=== PATIENT | female | born 1975 | race Caucasian/White ===

== ENCOUNTER 2021-07-05 21:51 | Emergency (ER) | payer SELFPAY ==
[2021-07-05 21:56] VITALS: BP 136/86
[2021-07-06] MEDS ORDERED: ONDANSETRON 4 MG ODT TAB PO ONE (00:11)
[2021-07-06] MEDS ORDERED: KETOROLAC 60 MG/2 ML INJ IM ONE (00:11)
--- NOTE | 2021-07-06 00:22 | Emergency Department Report ---
<KEITH GARCIA - Last Filed: 07/06/21 00:37> ED Fever HPI - General Chief Complaint: Nausea/Vomiting/Diarrhea Stated Complaint: CHILLS VOMITNG FEVER COUGH Time Seen by Provider: 07/06/21 00:03 Source: patient Exam Limitations: no limitations - History of Present Illness Initial Comments: 45-year-old female presents to the hospital, chills, cough, headache, and body aches for the last. Patient states she has been unable to do intake and has persistent nausea. She is taking TheraFlu, NyQuil, and ibuprofen intermittently. She complains of mild epigastric abdominal pain. She is vaccinated for Covid but did not receive a booster. ED Review of Systems Comment: All other systems reviewed and negative ED Past Medical Hx - Past Medical History Previous Medical History?: No - Surgical History Past Surgical History?: No - Medications Home Medications: Home Medications Medication Instructions Recorded Confirmed Last Taken Type Famotidine [Pepcid] 20 mg PO BID #20 tablet 07/06/21 Unknown Rx Ibuprofen [Motrin] 600 mg PO Q8H PRN #20 tablet 07/06/21 Unknown Rx Mag Hydrox/Aluminum Hyd/Simeth 20 ml PO QID PRN #1 bottle 07/06/21 Unknown Rx [Maalox Advanced Suspension] Ondansetron [Zofran Odt] 4 mg PO Q8HR PRN #20 tab.rapdis 07/06/21 Unknown Rx ED Physical Exam - General Limitations: No Limitations - Other Other exam information: General: Mild distress secondary to not feeling well Head: Atraumatic Eyes: normal appearance ENT: Moist mucous membranes Neck: Normal appearance, normal good rigidity noted Chest: Clear to auscultation bilaterally CV: Regular rate and rhythm Abdomen: Soft, normal bowel sounds, mild epigastric tender, nondistended, no rebound or guarding Back: Normal inspection Extremity: Normal inspection, full range of motion Neuro: Alert O x 3, no facial asymmetry, speech clear, no gross motor sensory d eficit Psych: Appropriate behavior Skin: No rash ED Medical Decision Making - Medical Decision Making 45-year-old female presents to the hospital viral symptoms. She is vaccinated for Covid. Vital signs are within normal range upon ED arrival without fever, hypotension, tachycardia, tachypnea, or hypoxia. Zofran and Toradol ordered and the patient would need reassessment for improvement prior to possible discharge. Patient signed out to Dr. Garcia ED Disposition Clinical Impression: Viral illness, Anxiety, Nausea & vomiting Disposition: 07 LEFT AWOL/ELOPED Is pt being admited?: No Does the pt Need Aspirin: No Instructions: Viral Illness, Adult, Prevent the Spread of COVID-19 if You Are Sick - [facility] Additional Instructions: Take the medication as prescribed. Follow-up with your doctor or doctor/clinic provided. Return if symptoms worsen as indicated by your discharge instructions. I also recommend that she received outpatient Covid testing Prescriptions: Mag Hydrox/Aluminum Hyd/Simeth [Maalox Advanced Suspension] 20 ml PO QID PRN #1 bottle PRN Reason: Indigestion Ibuprofen [Motrin] 600 mg PO Q8H PRN #20 tablet PRN Reason: Pain , Severe (7-10) Famotidine [Pepcid] 20 mg PO BID #20 tablet Ondansetron [Zofran Odt] 4 mg PO Q8HR PRN #20 tab.rapdis PRN Reason: Nausea And Vomiting Referrals: [facility] [Provider Group] - 3-5 Days BELLA CASTRO MD [Staff Physician] - 3-5 Days <AKILAH GARCIA S - Last Filed: 07/06/21 06:22> ED Review of Systems ROS: Stated complaint: CHILLS VOMITNG FEVER COUGH Other details as noted in HPI ED Course Vital Signs 07/05/21 21:53 Temperature 98.2 F Pulse Rate 71 Respiratory 18 Rate Blood Pressure 136/86 O2 Sat by Pulse 98 Oximetry ED Medical Decision Making - Medical Decision Making I was signed out this patient to follow-up regarding her viral symptoms and her response to Zofran and Toradol. As I went back to evaluate the patient, she had just run into [facility] room #1 with what appears to be a panic attack. The patient admits to history of PTSD and anxiety. She is hyperventilating and it appears to be worsening her nausea with vomiting. Patient did vomit up the Zofran given. We placed an IV so patient could receive IV fluid, a dose of Ativan and IV Zofran. She was reevaluated and had some improvement in her anxiety but still was heard retching. The patient was then given a dose of Reglan. At some point, just prior to my next reevaluation, the patient pulled out her IV and eloped from the emergency department. She left without any discharge paperwork or prescriptions. Critical Care Time: No Critical care attestation.: If time is entered above; I have spent that time in minutes in the direct care of this critically ill patient, excluding procedure time. ED Disposition Is pt being admited?: No
[2021-07-06] MEDS ORDERED: ONDANSETRON 4 MG/2 ML INJ IV ONE (00:53)
[2021-07-06] MEDS ORDERED: LORazepam 2 MG/ML VIAL IV ONE (00:53)
[2021-07-06] MEDS ORDERED: SODIUM CHLORIDE 0.9% 1000 ML 1,000 ML IV ONE (00:53)
[2021-07-06] MEDS ORDERED: METOCLOPRAMIDE 10 MG/2 ML INJ IV ONE (01:55)
== END 2021-07-06 03:00 | disposition left against medical advice (07) ==
LOC: ED 21:51
DX: B34.9 Viral infection, unspecified (principal); F41.9 Anxiety disorder, unspecified; R11.2 Nausea with vomiting, unspecified
CPT/HCPCS: 96372; 96374; 96375; 99282; J1885; J2060; J2405; J2765; J7030; J3490; Q0162